=== PATIENT | male | born 1995 | race Hispanic/Latino ===

== ENCOUNTER 2019-03-18 19:05 | Emergency (ER) | payer SELFPAY ==
[~2019-03-18] VITALS: Ht 162.6 cm; Wt 65.0 kg
[2019-03-18] MEDS ORDERED: [UNRECOGNIZED DRUG - OTHER] EX (19:32)
[2019-03-18] MEDS ORDERED: PEPCID20 MG PO (20:54)
[2019-03-18] MEDS ORDERED: MEDDOSEPAK PO (20:54)
[2019-03-18] MEDS ORDERED: BENADRYL 25MG C25 MG PO (20:54)
[2019-03-18] MEDS ORDERED: BACTROBAN TOP (20:55)
[2019-03-18 21:11] VITALS: BP 113/56
== END 2019-03-18 21:11 | disposition home or self-care (01) | DRG 918 ==
LOC: ED 19:05
DX: T60.91XA Toxic effect of unspecified pesticide, accidental (unintentional), initial encounter (principal); T20.40XA Corrosion of unspecified degree of head, face, and neck, unspecified site, initial encounter; T23.4 Corrosion of unspecified degree of wrist and hand; Y93.H2 Activity, gardening and landscaping; Y92.74 Orchard as the place of occurrence of the external cause; Y99.0 Civilian activity done for income or pay

== ENCOUNTER 2020-07-17 18:15 | Emergency (ER) | payer SELFPAY ==
[~2020-07-17] VITALS: Ht 162.6 cm; Wt 62.0 kg
[~2020-07-17 18:15] MED LIST: BACTROBAN TOP; BENADRYL 25MG C25 MG PO; MEDDOSEPAK PO; PEPCID20 MG PO; [UNRECOGNIZED DRUG - OTHER] EX
[2020-07-17] MEDS ORDERED: KEFLEX500 M1 PO (20:03)
[2020-07-17 20:25] VITALS: BP 125/68
== END 2020-07-17 20:25 | disposition home or self-care (01) | DRG 605 ==
LOC: ED 18:15
PROC: 0HQGXZZ Repair Left Hand Skin, External Approach (ICD-10-PCS; principal; 2020-07-17)
DX: S61.412A Laceration without foreign body of left hand, initial encounter (principal); W27.8XXA Contact with other nonpowered hand tool, initial encounter; Y92.89 Other specified places as the place of occurrence of the external cause; Y99.0 Civilian activity done for income or pay